=== PATIENT | male | born 1965 | race Two or more races ===

== ENCOUNTER 2025-07-29 11:58 | Emergency (ER) | payer OTHER ==
[~2025-07-29] VITALS: Ht 180.3 cm; Wt 68.0 kg
[2025-07-29] MEDS ORDERED: ALLERGY RELIE15.8 ML (13:26)
[2025-07-29] MEDS ORDERED: PROAIR RESPICL90 MCG IH (13:28)
[2025-07-29] MEDS ORDERED: NICOTINE PATCH1 EAC2 (13:28)
[2025-07-29] MEDS ORDERED: BUPRENORP-NALO1 EACH (13:29)
[2025-07-29] MEDS ORDERED: XANAX2 MG PO (13:29)
[2025-07-29] MEDS ORDERED: NORVASC5 MG (13:30)
[2025-07-29] MEDS ORDERED: TAMS0.4C PO (13:31)
[2025-07-29] MEDS ORDERED: LEXAPRO20 MG PO (13:31)
[2025-07-29] MEDS ORDERED: KETOROLAC TROMETHAMINE 30 MG VIAL IV ONE (14:00)
[2025-07-29] MEDS ORDERED: TAMSULOSIN HCL 0.4 MG CAP PO ONE ×2 (14:00→18:07)
[2025-07-29] MEDS ORDERED: 0.9 % SODIUM CHLORIDE 1,000 ML IV SCH (14:00)
[2025-07-29] MEDS ORDERED: KETOROLAC TROMETHAMINE 30 MG VIAL ONE (18:07)
[2025-07-29 19:59] LABS: URINE APPEARANCE Cloudy; URINE BILIRRUBIN Negative (NEGATIVE); URINE BLOOD Small; URINE COLOR Dark Yellow; URINE GLUCOSE Negative (NEGATIVE); URINE KETONE 15 (NEGATIVE); URINE LEUKOCYTE Small; URINE NITRATE Negative; URINE PROTEIN 30 (NEGATIVE); URINE UROBILINOGEN 1.0 E.U./dl
[2025-07-29 20:04] LABS: URINE EPITHELIAL CELLS 11.0 uL (0.0-38.8); URINE RBC 23.3 uL (0.0-20.8); URINE WBC 161.8 uL (0.0-23.2)
[2025-07-29 20:04] LABS: BASO % 0.5 % (0.1-1.2); EOS # 0.14 (0.04-0.54); EOS % 1.4 % (0.7-7.0); LYMPH # 2.10 (1.18-3.74); LYMPH % 20.6 % (19.3-53.1); MEAN PLATELET VOLUME 13.10 fl (9.4-12.4); MONO # 1.21 (0.24-0.82); MONO % 11.9 % (4.7-12.5); NEUT # 6.64 (1.56-6.13); NEUT % 65.0 % (34.0-71.1); RED CELL DISTRIBUTION WIDTH 13.7 % (11.6-14.4)
[2025-07-29 20:34] LABS: TYPE CELLS RENAL TUBULAR; URINE BACTERIA > 9821.5 uL (0.0-1933); URINE CAST 0.00 uL (0.0-1.40)
[2025-07-29 21:08] LABS: ALT/SGPT 37.0 U/L (12-78); AST/SGOT 18.0 U/L (15-37); BILIRUBIN TOTAL 0.57 mg/dL (0.3-1.2); BUN CREA RATIO 14.0 (7.0-25.0); CREATININE SERUM 0.57 mg/dL (0.70-1.30); GFR 145.81; GLOBULINA 4.0 G/DL (2.4-3.5); GLUCOSE FASTING 96.0 mg/dL (65-100); OSMOLALITY SERUM 263.0 MOSM/KG (275-295)
[2025-07-29] MEDS ORDERED: CEFTRIAXONE SODIUM 1,000 MG VIAL IM ONE (22:45)
[2025-07-29] MEDS ORDERED: TYLENOL ARTHRI650 MG PO (22:50)
[2025-07-29] MEDS ORDERED: PEPCID AC20 MG PO (22:50)
[2025-07-29] MEDS ORDERED: LEVOFLOXACIN500 MG PO (22:50)
[2025-07-29] MEDS ORDERED: CEFTRIAXONE SODIUM 1,000 MG VIAL ONE (22:52)
== END 2025-07-29 23:42 | disposition home or self-care (01) ==
LOC: ER 11:58
PROVIDERS: General Practice
DX: N30.80 Other cystitis without hematuria (principal); R33.9 Retention of urine, unspecified; N20.0 Calculus of kidney; Z87.09 Personal history of other diseases of the respiratory system; Z91.013 Allergy to seafood